=== PATIENT | male | born 1935 | race Caucasian/White ===

== ENCOUNTER → 2017-04-21 | Outpatient (CLI) | payer MEDICARE, OTHER ==
[~2017-04-21] MED LIST: ACETAMINOPHEN PO; ASPIRIN PO; AVAPRO PO; DICLOFENAC PO; PLENDIL PO; TRIGLIDE PO; ZOCOR PO
--- NOTE | ~2017-04-21 | CT114 ---
[facility] A Service of [facility] RADIOLOGY TEXT RESULTS PATIENT: AUGUSTO WASSERMAN LOCATION: [facility] : 37 UNIT #: [id number] AGE: [address]: Ulises Lowery MD SEX: M ORDER DR: [id number] [facility] [address] [place], [place] [address] [id number] O MR#: [id number] #: [id number] NAME: AUGUSTO WASSERMAN : 1935 SEX: M STUDY DATE/TIME: 04/21/2017 13:54 UNIT: [facility] ROOM: STUDY DESCRIPTION: CT Soft Tissue Neck W Cont Attending Physician: Ulises Lowery M.D. Referring Physician: Ulises Lowery M.D. Ordering Physician: Ulises Lowery M.D. Primary Care Physician: Daniel Jarrett M.D. MEDICAL IMAGING REPORT This report is preliminary unless electronic signature is present EXAM Soft tissue neck CT with contrast 04/21/2017 PROCEDURE Axial contrast-enhanced soft tissue neck CT with multiplanar reformats. This CT examination was performed with one or more of the following radiation dose reduction techniques: automatic exposure control, adjustment of mA and/or kV according to patient size, and iterative reconstruction. COMPARISON None. CLINICAL HISTORY Right neck swelling and difficulty swallowing for 4 days. FINDINGS There is soft tissue fullness and stranding in the right submandibular region and there is fullness in the right submandibular salivary gland. There is a tiny calcification perhaps 2-3 mm in size in the right sublingual region possibly along the anterior course of the right Hebron's duct though not near the papilla. There are no stones in either parotid gland or in the right submandibular salivary gland but there is a nonobstructing calculus in the left submandibular salivary gland. There is no evidence of abscess. There is no CT identifiable periodontal erosion. The visualized paranasal sinuses are normal. The visualized upper lungs are normal. There is spinal degenerative change but no acute bony abnormality. Minimal reactive cervical nodes are seen but no suspicious adenopathy. There is plaque at the carotid bifurcations but no evidence of possible stenosis can be made on this exam which is not tailored for the evaluation of carotid stenosis. [facility] A Service of [facility] RADIOLOGY TEXT RESULTS PATIENT: AUGUSTO WASSERMAN LOCATION: [facility] : 37 UNIT #: [id number] AGE: [address]: Ulises Lowery MD SEX: M ORDER DR: There is a nodule in the right lobe of the thyroid at least 1.7 x 2.2 x 1.9 cm in size. IMPRESSION 1. Soft tissue swelling, inflammatory change, mostly surrounding the right submandibular salivary gland which appears slightly full. There are no stones in the right submandibular gland and there is no abscess though there is a calcification in the left submandibular gland. 2. There is a tiny calcification in the right floor of mouth about 2-3 mm in size possibly along the course of the right Hebron's duct though not at the papilla, though that is not at all certain. There is no evidence of abscess and there is no potential dental source of the inflammatory change and there is minimal reactive adenopathy. 3. Exam is otherwise primarily remarkable for a right thyroid nodule about 1.7 x 2.2 x 1.9 cm in size, recommend followup thyroid ultrasound when clinically prudent. Dictated by... Ryan Barnhart M.D. THIS IS AN ELECTRONICALLY VERIFIED REPORT Ryan Barnhart M.D. at 04/22/2017 4:05 PM MARIA D/rosaura TD: 04/22/2017 09:49 JOB #: [id number] MEDICAL IMAGING REPORT Page 1 of 1 COPY
[2017-04-21 15:05] LABS: POC - CREATININE 1.19 mg/dL (0.64-1.27); POC - GFR >60.0 mL/min (>60)
== END | disposition home or self-care (01) ==
LOC: CCAT 13:11
PROVIDERS: Specialist
DX: K11.20 Sialoadenitis, unspecified (principal); J02.9 Acute pharyngitis, unspecified; M79.89 Other specified soft tissue disorders; E04.1 Nontoxic single thyroid nodule
CPT/HCPCS: 70491; 82565; Q9967